=== PATIENT | female | born 1975 | race Caucasian/White ===

== ENCOUNTER 2019-11-26 14:16 | Emergency (ER) | payer MEDICARE, MEDICAID ==
--- NOTE | 2019-11-26 14:41 | ED General ---
General Chief Complaint: General Problems/Pain Stated Complaint: PANIC ATTACK Nursing Triage Note: Was sent from urgent care for panic attack and low INR. Was seeking care due to her INR being 1.1 at home. Has hx of aortic valve replacement and is supposed to have INR at 2.5 to 3. Nursing Sepsis Screen: No Definite Risk Source of Information: Patient, Old Records, RN/MD, RN Notes Reviewed Exam Limitations: No Limitations History of Present Illness Date Seen by Provider: November 26, 2019 Time Seen by Provider: 14:25 Initial Comments This patient is a 43-year-old female presents to the emerge department for concerns about her INR. Patient states she got panicky and upset because she is supposed thank you primary level between 2.5 and 3.5 due to a prosthetic valve. Patient states he got upset. Patient does have a regimen of Coumadin dosages to take when she has issues like this. But just scared her. Patient does not appear to be acutely sick patient does not appear to be acutely anxious or panicky at this time. Severity: Mild Allergies and Home Medications Allergies Coded Allergies: aspirin (Verified Allergy, Unknown, "stops my heart", 11/26/19) Patient Home Medication List Home Medication List Reviewed: Yes Review of Systems Review of Systems Constitutional: No no symptoms reported; see HPI; No chills, No diaphoresis, No dizziness, No fever, No malaise, No weakness, No weight gain, No weight loss, No other EENTM: No see HPI, No no symptoms reported, No ear discharge, No hearing loss, No ear pain, No blurred vision, No double vision, No eye pain, No tearing, No vision loss, No dental problems, No hoarseness, No mouth pain, No mouth swelling, No epistaxis, No nose congestion, No nose pain, No throat pain, No throat swelling, No other Respiratory: No no symptoms reported, No see HPI, No cough, No dyspnea on exertion, No hemoptysis, No orthopnea, No phlegm, No short of breath, No stridor, No wheezing, No other Cardiovascular: No no symptoms reported, No see HPI, No chest pain, No edema, No Hx of Intervention, No palpitations, No syncope, No vascular heart diseas, No other Gastrointestinal: No RUQ, No LUQ, No RLQ, No LLQ, No no symptoms reported, No see HPI, No abdominal pain, No constipation, No diarrhea, No dysphagia, No hematemesis, No heartburn, No jaundice, No loss of appetite, No melena, No nausea, No vomiting, No other Genitourinary: No no symptoms reported, No see HPI, No decreased output, No discharge, No dysuria, No frequency, No hematuria, No hesitancy, No incontinence, No nocturia, No pain, No other Musculoskeletal: No no symptoms reported, No see HPI, No back pain, No gout, No joint pain, No joint swelling, No muscle pain, No muscle stiffness, No muscle cramps, No muscle twitching, No muscle weakness, No neck pain, No other Skin: No no symptoms reported, No see HPI, No change in color, No change in hair/nails, No dryness, No hx of skin cancer, No lesions, No lumps, No pruritus, No rash, No other Psychiatric/Neurological: Denies No Symptoms Reported; See HPI, Anxiety; Denies Depressed, Denies Emotional Problems, Denies Headache, Denies Numbness, Denies Paresthesia, Denies Pre-Existing Deficit, Denies Seizure, Denies Tingling, Denies Tremors, Denies Weakness, Denies Other Hematologic/Lymphatic: Denies No Symptoms Reported, Denies See HPI, Denies Anemia, Denies Blood Clots, Denies Easy Bleeding, Denies Easy Bruising, Denies Swollen Glands, Denies Other All Other Systems Reviewed Negative Unless Noted: Yes Past Zjqqgww-Qlbbqz-Uctbfh Hx Patient Social History Alcohol Use: Denies Use Recreational Drug Use: No Smoking Status: Former Smoker Type Used: Cigarettes Former Smoker, Quit: Jul 13, 2012 2nd Hand Smoke Exposure: Yes Recent Foreign Travel: No Contact w/Someone Who Travel: No Recent Infectious Disease Expo: No Recent Hopitalizations: No Seasonal Allergies Seasonal Allergies: No Past Medical History Surgeries: Yes (aortic valve replacement; ) Cardiac, Gallbladder Respiratory: No Cardiac: Yes Hypertension Neurological: Yes Stroke Genitourinary: No Gastrointestinal: Yes Irritable Bowel Musculoskeletal: No Endocrine: No HEENT: No Cancer: No Anxiety Integumentary: No Physical Exam Vital Signs Vital Signs - First Documented 11/26/19 14:28 Temp 36.9 Pulse 94 Resp 16 B/P (MAP) 132/98 (109) Pulse Ox 98 Capillary Refill : Less Than 3 Seconds Height, Weight, BMI Height: '" Weight: lbs. oz. kg; BMI Method: General Appearance: No Apparent Distress, WD/WN HEENT: PERRL/EOMI, TMs Normal, Normal ENT Inspection, Pharynx Normal Neck: Full Range of Motion, Normal Inspection, Non Tender, Supple, Carotid Bruit Respiratory: Chest Non Tender, Lungs Clear, Normal Breath Sounds, No Accessory Muscle Use, No Respiratory Distress Cardiovascular: Regular Rate, Rhythm, No Edema, No Gallop, No JVD, No Murmur, Normal Peripheral Pulses Gastrointestinal: Normal Bowel Sounds, No Organomegaly, No Pulsatile Mass, Non Tender, Soft Back: Normal Inspection, No CVA Tenderness, No Vertebral Tenderness Extremity: Normal Capillary Refill, Normal Inspection, Normal Range of Motion, Non Tender, No Calf Tenderness, No Pedal Edema Neurologic/Psychiatric: Alert, Oriented x3, No Motor/Sensory Deficits, Normal Mood/Affect Progress/Results/Core Measures Suspected Sepsis Recent Fever Within 48 Hours: No Infection Criteria Present: None New/Unexplained Altered Menta: No Sepsis Screen: No Definite Risk SIRS Temperature: Pulse: 94 Respiratory Rate: 16 Blood Pressure 132 /98 Mean: 109 Results/Orders Vital Signs/I&O 11/26/19 14:28 Temp 36.9 Pulse 94 Resp 16 B/P (MAP) 132/98 (109) Pulse Ox 98 Capillary Refill : Less Than 3 Seconds Blood Pressure Mean: 109 Progress Note : Time: 14:38 Progress Note I did discuss at length with patient about her normal INR readings. Patient does check this daily. Patient states she tries to keep around 3.0. But does admit that he changes every day. We did review patient's medication regimen with her Coumadin and her orders from her. From a care doctor. We did discuss at length with options. Patient will continue to monitor her diet and her INR. Patient will take Coumadin as instructed per her PCP. Patient will check her INR in the morning prior to her Coumadin dose and then check it again 12 hours later. She will keep this log and follow up with her primary care physician on Thursday. Patient has no complaints. We'll do medical evaluation treatment is needed. Patient's INR checked at home was 1.2. Patient was offered repeat labs in the emergency department the patient declines. Patient states she feels much better after discussing the issue. Patient be discharged per her request Departure Impression Primary Impression: Encounter for medication review and counseling Additional Impressions: Anxiety Encounter for medical screening examination Disposition: HOME, SELF-CARE Condition: Stable Departure-Patient Inst. Decision time for Depature: 14:40 Add. Discharge Instructions: Continue with your INR daily checks. Continue to monitor your diet. Continue with all home medications. Follow-up with her primary care physician on Thursday to discuss options on your Coumadin dosage and diet. Continue with all home medications. All discharge instructions reviewed with patient and/or family. Voiced understanding. AISLINN TAYLOR MD November 26, 2019 14:41
[2019-11-26 14:49] VITALS: BP 132/98
--- OUTSIDE RECORDS SUMMARY | 2019-11-26 15:00 | XMS REPORT ---
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 Active 61752100165168 Problem Gastroesophageal reflux disease without esophagitis K21.9 Active 539859630 ALLERGIES No Information ENCOUNTERS Encounter Location Date Diagnosis [place] [address] [place] [phone] Jan [place] [address] [place] [phone] Oct [place] [address] [place] [phone] Oct [place] [address] [place] [phone] [address] Oct, [facility] [address] [place] [phone] Sep [place] [address] [place] [phone] Sep [place] [address] [place] [phone] Sep [facility] [address] [address] [place] [address] Aug, Lumbosacral pain M54.5 [place] [address] [place] [phone] Aug Essential hypertension I10 ; Aortic valve replaced Z95.2 ; 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 ; Gastroesophageal reflux disease without esophagitis K21.9 ; Non-seasonal allergic rhinitis, unspecified trigger J30.89 ; Lumbosacral pain M54.5 and Tenderness of lumbar region M54.5 [facility] [address] [place] [phone] Jul [facility] [address] [place] [phone] Jul [facility] [address] [place] [phone] Jul Seasonal allergic rhinitis, unspecified trigger J30.2 IMMUNIZATIONS No Known Immunizations SOCIAL HISTORY Never Assessed REASON FOR VISIT PLAN OF CARE VITAL SIGNS MEDICATIONS Unknown Medications RESULTS No Results PROCEDURES No Known procedures INSTRUCTIONS MEDICATIONS ADMINISTERED No Known Medications MEDICAL (GENERAL) HISTORY Type Description Date Medical History hypertension
--- OUTSIDE RECORDS SUMMARY | 2019-11-26 15:00 | XMS REPORT ---
Author Author Lelo RESTREPO Organization [facility] Address [address] [address] Care Team Providers Care Vice President Of Human Resources Name Role Phone LAURO MEDARDO Unavailable PROBLEMS Type Condition ICD9-CM Code VMI87-UI Code Onset Dates Condition S tatus SNOMED Code Problem Aortic valve replaced Z95.2 Active 2410138133846 Problem Essential hypertension I10 Active 95765305 Problem Seasonal allergic rhinitis, unspecified trigger J3 0.2 Active 194916697 Problem Non-seasonal allergic rhinitis, unspecified trigger J30.89 Active 79217095 Problem 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 Active 94160158611784 Problem Gastroesophageal reflux disease without esophagitis K21.9 Active 286252497 ALLERGIES No Information ENCOUNTERS Encounter Location Date Diagnosis [place] [address] [place] [phone] Jan [place] [address] [place] [phone] Oct [place] [address] [place] [phone] Oct [place] [address] [place] [phone] [address] [address] Oct, [place] [address] [place] [phone] Sep [place] [address] [place] [phone] Sep [place] [address] [place] [phone] Sep [facility] [address] [address] [place] [address] Aug, Lumbosacral pain M54.5 [place] [address] [place] [phone] Aug Essential hypertension I10 ; Aortic valve replaced Z95.2 ; 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 ; Gastroesophageal reflux disease without esophagitis K21.9 ; Non-seasonal allergic rhinitis, unspecified trigger J30.89 ; Lumbosacral pain M54.5 and Tenderness of lumbar region M54.5 [facility] [address] [place] [phone] Jul [place] [address] [place] [phone] Jul [facility] [address] [place] [phone] Jul Seasonal allergic rhinitis, unspecified trigger J30.2 IMMUNIZATIONS No Known Immunizations SOCIAL HISTORY Never Assessed REASON FOR VISIT Allergies PLAN OF CARE VITAL SIGNS MEDICATIONS Medication Instructions Dosage Frequency Start Date End Date Duration S tatus Cetirizine HCl 10 MG Orally Once a day 1 tablet 24h Sep, 30 day(s) Active RESULTS No Results PROCEDURES No Known procedures INSTRUCTIONS MEDICATIONS ADMINISTERED No Known Medications MEDICAL (GENERAL) HISTORY Type Description Date Medical History hypertension
--- OUTSIDE RECORDS SUMMARY | 2019-11-26 15:00 | XMS REPORT ---
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 [address] [place] [address] Mar, Left knee pain, unspecified chronicity M25.562 [facility] [address] [place] [address] [address] Mar, Seasonal allergic rhinitis, unspecified trigger J30.2 [facility] [address] [place] [address] [address] Jan, [facility] [address] [place] [address] [address] Oct, [facility] [address] [place] [address] [address] Oct, [facility] [address] [place] [address] [address] Oct, [address] [place] [address] Oct, [facility] [address] [place] [address] [address] Sep, [place] [address] [place] [id number] [place] [phone] Sep, [facility] [address] [place] [address] [address] Sep, [facility] [id number] [place] [address] Aug, Lumbosacral pain M54.5 [place] [address] [place] [id number] [place] [phone] Aug, Essential hypertension I10 ; Aortic valve replaced Z95.2 ; 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 ; Gastroesophageal reflux disease without esophagitis K21.9 ; Non-seasonal allergic rhinitis, unspecified trigger J30.89 ; Lumbosacral pain M54.5 and Tenderness of lumbar region M54.5 [place] [address] [place] [address] [address] Jul, [place] [address] [place] [address] [address] Jul, [place] [address] [place] [id number] [place] [phone] Jul, Seasonal allergic rhinitis, unspecified trigger J30.2 IMMUNIZATIONS No Known Immunizations SOCIAL HISTORY Never Assessed REASON FOR VISIT LMTRC PLAN OF CARE VITAL SIGNS MEDICATIONS Unknown Medications RESULTS No Results PROCEDURES No Known procedures INSTRUCTIONS MEDICATIONS ADMINISTERED No Known Medications MEDICAL (GENERAL) HISTORY Type Description Date Medical History hypertension Medical History depression Surgical History cardiac by pass -- 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
== END 2019-11-26 14:50 | disposition home or self-care (01) ==
LOC: ER FS 14:18
DX: F41.9 Anxiety disorder, unspecified (principal); Z88.6 Allergy status to analgesic agent; Z87.891 Personal history of nicotine dependence; Z77.22 Contact with and (suspected) exposure to environmental tobacco smoke (acute) (chronic); Z86.73 Personal history of transient ischemic attack (TIA), and cerebral infarction without residual deficits; Z95.4 Presence of other heart-valve replacement
CPT/HCPCS: 99281

== ENCOUNTER 2020-08-25 12:31 | Emergency (ER) | payer MEDICARE, MEDICAID ==
[~2020-08-25] VITALS: Ht 165.1 cm; Wt 94.8 kg
--- NOTE | 2020-08-25 13:00 | ED General ---
General Stated Complaint: LT FOOT INJ Source of Information: Patient Exam Limitations: No Limitations History of Present Illness Date Seen by Provider: Aug 25, 2020 Time Seen by Provider: 12:54 Initial Comments 44-year-old female presents with left foot pain from an injury last night. She states she hit her foot on a piece of furniture and twisted it and today she is unable to bear weight. Noticed some swelling, no bruising on the bottom outside of her foot. Denies a history of any foot fracture, but does state that she has had a sprain in the past. Denies any other injury or complaint. Allergies and Home Medications Allergies Coded Allergies: aspirin (Verified Allergy, Unknown, "stops my heart", 11/26/19) Patient Home Medication List Home Medication List Reviewed: Yes Review of Systems Review of Systems Constitutional: No chills, No fever, No malaise, No weakness EENTM: no symptoms reported Musculoskeletal: No back pain, No joint pain, No muscle pain; other (left foot pain) Past Xglbbta-Tnfibp-Bndfqc Hx Past Med/Social Hx: Reviewed Nursing Past Med/Soc Hx Patient Social History Type Used: Cigarettes Former Smoker, Quit: Jul 13, 2012 2nd Hand Smoke Exposure: Yes Recent Hopitalizations: No Seasonal Allergies Seasonal Allergies: No Past Medical History Surgeries: Yes (aortic valve replacement; ) Cardiac, Gallbladder Respiratory: No Cardiac: Yes Hypertension Neurological: Yes Stroke Genitourinary: No Gastrointestinal: Yes Irritable Bowel Musculoskeletal: No Endocrine: No HEENT: No Cancer: No Anxiety Integumentary: No Physical Exam Vital Signs Capillary Refill : Height, Weight, BMI Height: '" Weight: lbs. oz. kg; BMI Method: General Appearance: No Apparent Distress, WD/WN Extremity: Normal Capillary Refill, Normal Inspection, Other (Tenderness mid 5th MT w edema, no ecchymosis. NVI) Neurologic/Psychiatric: Alert, No Motor/Sensory Deficits, Normal Mood/Affect Skin: Normal Color, Warm/Dry; No Ecchymosis Progress/Results/Core Measures Suspected Sepsis SIRS Temperature: Pulse: Respiratory Rate: Blood Pressure / Mean: Results/Orders My Orders Orders - JOIVENLENCHO OVIEDO DO Foot 3 View Left (08/25/20 12:53) Vital Signs/I&O Capillary Refill : Progress Note : Progress Note Patient presents w an KULWINDER-wrap, an Ortho walking boot AND an Ortho s cooter.....some things she had, some borrowed. Explained she had everything she needed until Ortho f/u and advised to remain NWB as much as possible. Diagnostic Imaging Diagonstic Imaging: Xray Comments FINDINGS: Obliquely oriented fracture through the 5th metatarsal shaft. There is slight medial displacement of the main distal fracture fragment. Approximately 1.5 mm of displacement. The articular head is maintained. There is associated soft tissue edema along the lateral aspect of foot. Remaining structures otherwise intact. IMPRESSION: 1. Mildly displaced obliquely oriented fracture of the distal 5th metatarsal shaft. Associated soft tissue swelling. Dictated on workstation # [id number] Dict: 08/25/20 1308 Trans: 08/25/20 1311 [facility] [id number] Interpreted by: ANUM CHEN DO Electronically signed by: Departure Impression Primary Impression: Fracture of foot Qualified Codes: S92.902A - Unspecified fracture of left foot, initial encounter for closed fracture Disposition: HOME, SELF-CARE Condition: Stable Departure-Patient Inst. Decision time for Depature: 13:17 Referrals: MEDARDO RESTREPO APRN (PCP) Primary Care Physician NHI LAROSE MD (Family) Primary Care Physician KAREN BAUGH MD Patient Instructions: Foot Fracture (DC) Add. Discharge Instructions: Call Dr Baugh on Thursday to schedule a follow up appointment next week. Avoid weight bearing and keep foot elevated to help with swelling and pain LENCHO LEMUS DO Aug 25, 2020 13:00
--- NOTE | 2020-08-25 13:11 | Diagnostic Imaging Report ---
INDICATION: FOOT PAIN. TECHNIQUE: 3 views of the left foot CORRELATION STUDY: None FINDINGS: Obliquely oriented fracture through the 5th metatarsal shaft. There is slight medial displacement of the main distal fracture fragment. Approximately 1.5 mm of displacement. The articular head is maintained. There is associated soft tissue edema along the lateral aspect of foot. Remaining structures otherwise intact. IMPRESSION: 1. Mildly displaced obliquely oriented fracture of the distal 5th metatarsal shaft. Associated soft tissue swelling. Dictated by: Dictated on workstation # [id number]
[2020-08-25 13:42] VITALS: BP 127/79
== END 2020-08-25 13:42 | disposition home or self-care (01) ==
LOC: EDUNIT# 12:31 → ER FS 12:34
DX: S92.352A Displaced fracture of fifth metatarsal bone, left foot, initial encounter for closed fracture (principal); Z88.8 Allergy status to other drugs, medicaments and biological substances; Z86.73 Personal history of transient ischemic attack (TIA), and cerebral infarction without residual deficits; Z87.891 Personal history of nicotine dependence; X50.1XXA Overexertion from prolonged static or awkward postures, initial encounter
CPT/HCPCS: 73630

== ENCOUNTER → 2020-09-11 | Outpatient (CLI) | payer MEDICARE, MEDICAID ==
--- NOTE | 2020-09-11 12:30 | Diagnostic Imaging Report ---
INDICATION: Left foot fracture follow-up. AP, oblique, and lateral views of the left foot are obtained and compared to 08/25/2020. FINDINGS: The fracture of the 5th metatarsal is again noted. There appears to be mild increased displacement of fracture fragments compared to the prior study, with about 3 to 4 mm of displacement of the dominant fragments. I do not yet see significant callus formation. Remaining bony structures show no acute finding. IMPRESSION: 5th metatarsal fracture again noted, with mild increased displacement compared to the previous study. Dictated by: Dictated on workstation # [id number]
== END ==
LOC: RAD FS 10:10
PROVIDERS: ATTEND Nurse Practitioner
DX: S92.352D Displaced fracture of fifth metatarsal bone, left foot, subsequent encounter for fracture with routine healing (principal)
CPT/HCPCS: 73630

== ENCOUNTER → 2020-10-02 | Outpatient (CLI) | payer MEDICARE, MEDICAID ==
--- NOTE | 2020-10-02 11:05 | Diagnostic Imaging Report ---
INDICATION: Follow-up fracture. COMPARISON: 09/11/2020 FINDINGS: 3 radiographic views of the left foot were obtained and again demonstrate nonacute oblique oriented fracture of the 5th metatarsal. There is mild stable residual displacement of the fracture fragments. Since the previous exam, there has been interval development of adjacent soft tissue ossification consistent with probable early bridging callus formation. No new acute fracture or dislocation of the left foot is seen. No unexpected radiopaque foreign bodies are identified. IMPRESSION: 1. Partial interval healing in regards to otherwise stable fracture of the 5th metatarsal. Dictated by: Dictated on workstation # [id number]
== END ==
LOC: RAD FS 10:04
PROVIDERS: ATTEND Nurse Practitioner
DX: S92.352D Displaced fracture of fifth metatarsal bone, left foot, subsequent encounter for fracture with routine healing (principal); X58.XXXD Exposure to other specified factors, subsequent encounter
CPT/HCPCS: 73630

== ENCOUNTER 2021-02-08 19:17 | Emergency (ER) | payer MEDICARE, MEDICAID ==
[2021-02-08] MEDS ORDERED: methylPREDNISolone 80 MG/ML (DEPO MEDROL) VIAL IM STA (19:54)
--- NOTE | 2021-02-08 19:56 | ED General ---
General Chief Complaint: Cough/Cold/Flu Symptoms Stated Complaint: SORE THROAT,COUGH,RUNNING NOSE Nursing Triage Note: Pt complaining of nasal congestion and a cough since Thursday. Pt states she has been in contact with someone who tested positive for Covid and is concerned she might have it. Source of Information: Patient History of Present Illness Date Seen by Provider: Feb 08, 2021 Time Seen by Provider: 19:19 Initial Comments 45-year-old female presenting with nasal congestion, cough and concern for Covid. She states that she has had her cough and congestion for over 10 days. She has been exposed to 2 people this week that have been diagnosed with Covid. She has felt like her congestion and cough have gotten worse in the last 2 days. She also has a lot of anxiety and has been more worried that she has contracted Covid since she was around Covid in the last few days. She denies any fever, chills, shortness of breath, nausea, vomiting, diarrhea, pain with urination. She has had a cough but feels like it is more drainage from her nose causing her to cough. She does not feel like she has a deep cough. Allergies and Home Medications Allergies Coded Allergies: aspirin (Verified Allergy, Unknown, "stops my heart", 11/26/19) Patient Home Medication List Home Medication List Reviewed: Yes Review of Systems Review of Systems Constitutional: No chills, No fever; malaise EENTM: see HPI Respiratory: see HPI Cardiovascular: no symptoms reported Gastrointestinal: no symptoms reported Genitourinary: no symptoms reported Musculoskeletal: no symptoms reported Skin: No rash Psychiatric/Neurological: Anxiety, Headache (Frontal sinus) Past Mkrzpte-Ukjvxg-Acfwkg Hx Patient Social History Tobacco Use?: No Use of E-Cig and/or Vaping dev: No Substance use?: No Alcohol Use?: No Pt feels they are or have been: No Immunizations Up To Date Tetanus Booster (TDap): Unknown Seasonal Allergies Seasonal Allergies: No Past Medical History Surgeries: Yes (aortic valve replacement; cleft palate) Cardiac, Gallbladder Respiratory: No Cardiac: Yes Hypertension Neurological: Yes Stroke Genitourinary: No Gastrointestinal: Yes Irritable Bowel Musculoskeletal: No Endocrine: No HEENT: No (Cleft palate repair yrs ago) Cancer: No Anxiety Integumentary: No Physical Exam Vital Signs Vital Signs - First Documented 02/08/21 19:20 Temp 37.7 Pulse 89 Resp 18 B/P (MAP) 165/109 (127) Pulse Ox 98 O2 Delivery Room Air Capillary Refill : Less Than 3 Seconds Height, Weight, BMI Height: '" Weight: lbs. oz. kg; 34.00 BMI Method: General Appearance: Anxious HEENT: PERRL/EOMI, Pharynx Normal, Other (TMs showed mild dullness bilaterally with some clear fluid. There is no erythema. No tenderness over sinuses with palpation.) Neck: Full Range of Motion, Normal Inspection, Non Tender, Supple Respiratory: Chest Non Tender, Lungs Clear, Normal Breath Sounds, No Accessory Muscle Use, No Respiratory Distress Cardiovascular: Regular Rate, Rhythm, Normal Peripheral Pulses, Other (Click present) Gastrointestinal: No Pulsatile Mass, Non Tender, Soft Extremity: Normal Capillary Refill, Normal Inspection, No Pedal Edema Neurologic/Psychiatric: Alert, Oriented x3 Skin: Normal Color, Warm/Dry Progress/Results/Core Measures Suspected Sepsis SIRS Temperature: Pulse: 89 Respiratory Rate: 18 Blood Pressure 165 /109 Mean: 127 Results/Orders Lab Results Laboratory Tests Test 02/08/21 20:11 Range/Units Micro Results Microbiology 02/08/21 Influenza Types A,B Antigen (DEBBY) - Final, Complete My Orders Orders - LIYA HALLMAN MD Influenza A And B Antigens (02/08/21 19:54) Covid 19 Inhouse Test (02/08/21 19:54) Dexamethasone Injection (Decadron Inje (02/08/21 19:54) Methylprednisolone Acetate Inj (Depo-Med (02/08/21 19:54) Vital Signs/I&O 02/08/21 02/08/21 19:20 21:03 Temp 37.7 Pulse 89 83 Resp 18 18 B/P (MAP) 165/109 (127) 150/97 (127) Pulse Ox 98 98 O2 Delivery Room Air Capillary Refill : Less Than 3 Seconds Blood Pressure Mean: 127 Progress Note #1: Progress Note Advised patient that on exam this seems to be more allergies and/or viral. Since she is currently in the ED will send rapid flu and swab for Covid. Counseled that the Covid swab takes a day or 2 to come back. In terms of her allergies and congestion use dexamethasone and Depo-Medrol. Progress Note #2: Progress Note Influenza negative. Covid pending. Encourage fluids and rest. Counseled on quarantine and return precautions. Departure Impression Primary Impression: Nasal congestion Additional Impressions: Post-nasal drainage Cough Exposure to confirmed case of COVID-19 Disposition: 01 HOME, SELF-CARE Condition: Stable Departure-Patient Inst. Decision time for Depature: 20:43 Referrals: MEDARDO RESTREPO APRN (PCP) Primary Care Physician [facility] LAROSE MD (Family) Primary Care Physician Patient Instructions: Seasonal Allergies ED, Cough, Adult ED, COVID-19 ED Add. Discharge Instructions: Stay well hydrated and drink plenty of fluids. Use Plain Mucinex to help with congestion and drainage as well as loosen your co ugh Check back with clinic for continued problems/concerns. Continue with self quarantine since you have been around a person with COVID. If you have a positive result for your COVID test you will get a call to let you know. All discharge instructions reviewed with patient and/or family. Voiced understanding. LIYA HALLMAN MD Feb 08, 2021 19:56
[2021-02-08 21:03] VITALS: BP 150/97
== END 2021-02-08 21:03 | disposition home or self-care (01) ==
LOC: EDUNIT# 19:17 → ER FS 19:19
DX: U07.1 COVID-19 (principal); I10 Essential (primary) hypertension
CPT/HCPCS: 87636; 87804

== ENCOUNTER 2022-08-17 13:38 | Emergency (ER) | payer MEDICARE, MEDICAID ==
--- NOTE | 2022-08-17 13:58 | ED Upper Extremity ---
General Chief Complaint: Upper Extremity Stated Complaint: RT WRIST INJ Source: patient Exam Limitations: no limitations History of Present Illness Date Seen by Provider: Aug 17, 2022 Time Seen by Provider: 13:40 Initial Comments 46yoF that is qsmbv-ibjp-ynszluer with PMH of mechanical heart valve on warfarin coming in after she was walking her dog, fell backwards on her outstretched right hand causing severe pain and deformity. This occurred roughly 45 minutes prior to arrival. Went to the urgent care, and they told her there is nothing they could do and they referred her to the emergency department. Pain worse with movement, better with rest and ice. Has not taken anything for it as of yet. Denies any numbness or new weakness. Otherwise denying any other acute complaints. Did not hit her head or pass out. Allergies and Home Medications Allergies Coded Allergies: aspirin (Verified Allergy, Unknown, "stops my heart", 11/26/19) Patient Home Medication List Home Medication List Reviewed: Yes Review of Systems Constitutional: No fever EENTM: no symptoms reported Respiratory: no symptoms reported Cardiovascular: no symptoms reported Musculoskeletal: see HPI Skin: no symptoms reported Psychiatric/Neurological: No Symptoms Reported All Other Systems Reviewed Negative Unless Noted: Yes Past Nyhpdpl-Nkhmff-Rztxpk Hx Patient Social History Tobacco Use?: No Use of E-Cig and/or Vaping dev: No Substance use?: No Alcohol Use?: No Pt feels they are or have been: No Immunizations Up To Date Tetanus Booster (TDap): Unknown First/Initial COVID19 Vaccinat: Denies Seasonal Allergies Seasonal Allergies: No Past Medical History Surgery/Hospitalization HX: CABG; [place]; Tonsillectomy; Oophorectomy Surgeries: Yes (aortic valve replacement; cleft palate) Cardiac, Gallbladder Respiratory: No Cardiac: Yes Hypertension Neurological: Yes Stroke Genitourinary: No Gastrointestinal: Yes Irritable Bowel Musculoskeletal: No Endocrine: No HEENT: No (Cleft palate repair yrs ago) Cancer: No Anxiety Integumentary: No Physical Exam Vital Signs Vital Signs - First Documented 08/17/22 13:44 Temp 36.4 Pulse 89 Resp 16 B/P (MAP) 157/92 (113) Pulse Ox 99 O2 Delivery Room Air Capillary Refill : Height, Weight, BMI Height: '" Weight: lbs. oz. kg; 34.00 BMI Method: General Appearance: WD/WN, no apparent distress HEENT: PERRL/EOMI, normal ENT inspection, pharynx normal Neck: non-tender, full range of motion, supple, normal inspection Cardiovascular: regular rate, rhythm, no edema Respiratory: chest non-tender, lungs clear, normal breath sounds, no respiratory distress, no accessory muscle use Gastrointestinal: normal bowel sounds, non tender, soft; No distended, No guarding Back: normal inspection, no CVA tenderness, no vertebral tenderness Shoulder: normal inspection, non-tender, no evidence of injury, normal ROM Elbow/Forearm: normal inspection, non-tender, no evidence of injury, normal ROM Wrist: Yes swelling (Right wrist with swelling on the distal radius with maximal tenderness in that area, neurovascularly intact distal to the injury, normal testing motor exam for radial, median, and ulnar nerves, no scaphoid tenderness) Hand: normal inspection, non-tender, no evidence of injury, normal ROM, Right Neurologic/Tendon: normal sensation, normal motor functions, normal tendon functions Neurologic/Psychiatric: no motor/sensory deficits, alert, normal mood/affect Skin: normal color, warm/dry Lymphatic: no adenopathy Procedures/Interventions Splinting and Joint Reduction : Splint Application: Short Arm (Ortho-Glass used with padding prior and Blaze bandage over it, neurovascularly intact before and after, pain controlled well after placing the splint) Progress/Results/Core Measures Results/Orders My Orders Orders - FAUSTO REECE MD Wrist 3 View Right (08/17/22 13:53) Acetaminophen Tablet (Tylenol Tablet) (08/17/22 14:00) Medications Given in ED Current Medications Medications Dose Ordered Sig/Dada Route Start Time Stop Time Status Last Admin Dose Admin Acetaminophen 1,000 mg ONCE ONCE PO 08/17/22 14:00 08/17/22 14:01 DC 08/17/22 14:01 1,000 MG Vital Signs/I&O 08/17/22 13:44 Temp 36.4 Pulse 89 Resp 16 B/P (MAP) 157/92 (113) Pulse Ox 99 O2 Delivery Room Air Progress Progress Note : Progress Note 46-year-old female with above history coming in after a ground-level fall landing on her outstretched hand on the right. ABCs were intact vital stable on presentation. Neurovascularly intact in the right upper extremity. Right wrist x-ray ordered and interpreted by me showing a distal radius fracture that is mildly displaced and angulated mildly. She also has an ulnar styloid fracture. She was placed in a sugar-tong splint by me. I will have her follow-up with orthopedics as an outpatient. Given Tylenol for pain control because she states she does not like opioids. I believe she is otherwise stable for discharge with outpatient follow-up. She was sent home with strict return precautions. Diagnostic Imaging Diagonstic Imaging: Xray (right wrist) Comments [facility] [place], [place] NAME: MACHO CARLTON [facility] REC#: [id number] PT STATUS: REG ER : 1975 PHYSICIAN: FAUSTO REECE MD ADMIT DATE: 08/17/22/ER FS Draft Date of Exam:08/17/22 WRIST 3 VIEW RIGHT INDICATION: Pain after fall. FINDINGS: There is a transverse fracture through the distal radius. The distal fracture fragment is angulated slightly dorsally. There is also an ulnar styloid fracture. There is no other fracture or dislocation. IMPRESSION: Fractures of the distal right radius and ulna as described. Dictated on workstation # [id number] Dict: 08/17/22 1406 Trans: 08/17/22 1414 [id number] Interpreted by: ROXANNE CAVAZOS MD Electronically signed by: Departure Impression Primary Impression: Distal radius fracture, right Qualified Codes: S52.531A - Colles' fracture of right radius, initial encounter for closed fracture Additional Impression: Fracture of ulnar styloid Qualified Codes: S52.614A - Nondisplaced fracture of right ulna styloid process, initial encounter for closed fracture Disposition: HOME, SELF-CARE Condition: Stable Departure-Patient Inst. Decision time for Depature: 14:22 Referrals: MEDARDO RESTREPO APRN (PCP) Primary Care Physician [facility] (Family) Primary Care Physician REYNOLD SOLER Patient Instructions: Radius Fracture (DC) Add. Discharge Instructions: You do have a fracture in your radius and a smaller one in your ulna both in your wrist. Follow-up with Jaydon Soler here in town, and he can refer you if you need surgery. Take Tylenol as needed for pain like he stated. He can also ice the area. Do not get the splint wet. You will need a cast eventually. Work/School Note: Work Release Form Date Seen in the Emergency Department: Aug 17, 2022 Return to Work: Aug 18, 2022 Restrictions: No Restrictions FAUSTO REECE MD Aug 17, 2022 13:58
[2022-08-17] MEDS ORDERED: ACETAMINOPHEN 500 MG TAB (TYLENOL) PO ONE (14:00)
--- NOTE | 2022-08-17 14:15 | Diagnostic Imaging Report ---
INDICATION: Pain after fall. FINDINGS: There is a transverse fracture through the distal radius. The distal fracture fragment is angulated slightly dorsally. There is also an ulnar styloid fracture. There is no other fracture or dislocation. IMPRESSION: Fractures of the distal right radius and ulna as described. Dictated by: Dictated on workstation # [id number]
[2022-08-17 14:24] VITALS: BP 157/92
== END 2022-08-17 14:24 | disposition home or self-care (01) ==
LOC: EDUNIT# 13:38 → ER FS 13:39
DX: S52.501A Unspecified fracture of the lower end of right radius, initial encounter for closed fracture (principal); S52.611A Displaced fracture of right ulna styloid process, initial encounter for closed fracture; Z79.01 Long term (current) use of anticoagulants; Z28.310 Unvaccinated for COVID-19; W18.30XA Fall on same level, unspecified, initial encounter; Y93.K1 Activity, walking an animal
CPT/HCPCS: 29125; 73110

== ENCOUNTER → 2022-08-19 | Outpatient (CLI) | payer MEDICARE, MEDICAID ==
--- NOTE | 2022-08-19 17:12 | Diagnostic Imaging Report ---
EXAMINATION: Right wrist radiographs, 2 views. COMPARISON: None. HISTORY: 46-year-old female, right wrist pain. FINDINGS: There is a comminuted displaced distal radial metaphyseal fracture without identified intra-articular fracture extension. There is no periosteal reaction or bony callus bridging. There is widening of the scapholunate interval without proximal migration of the capitate. There is chronic-appearing deformity of the distal ulna. IMPRESSION: 1. Comminuted displaced fracture of the distal radial metaphysis without identified intra-articular fracture extension. 2. Widening the scapholunate interval without proximal migration of the capitate. This is of unclear exact age. It has associations with scapholunate ligament injury. Dictated by: Dictated on workstation # [id number]
== END ==
LOC: RAD FS 13:15
PROVIDERS: ATTEND Nurse Practitioner
DX: S52.531A Colles' fracture of right radius, initial encounter for closed fracture (principal); X58.XXXA Exposure to other specified factors, initial encounter
CPT/HCPCS: 73100

== ENCOUNTER → 2022-08-29 | Outpatient (CLI) | payer MEDICARE, MEDICAID ==
--- NOTE | 2022-08-29 15:11 | Diagnostic Imaging Report ---
EXAMINATION: Right wrist radiographs, 2 views. COMPARISON: August 19, 2022. HISTORY: 46-year-old female, right wrist fracture. Follow-up exam. FINDINGS: There is a mildly displaced distal radial metaphyseal fracture without significant interval change in bone alignment. There is a persistent well-visualized fracture line. There is interval placement of overlying cast material. There is widening of the scapholunate interval. There is no proximal migration of the capitate. There is a chronic-appearing deformity of the distal ulna. IMPRESSION: 1. Interval placement of overlying cast material with redemonstrated and unchanged appearance of the distal radial metaphyseal fracture. 2. Redemonstrated widening of the scapholunate interval which can be seen with scapholunate ligament injury. There is no proximal migration of the capitate. Dictated by: Dictated on workstation # [id number]
== END ==
LOC: RAD FS 10:18
PROVIDERS: ATTEND Nurse Practitioner
DX: M24.231 Disorder of ligament, right wrist (principal); S52.531D Colles' fracture of right radius, subsequent encounter for closed fracture with routine healing; X58.XXXD Exposure to other specified factors, subsequent encounter
CPT/HCPCS: 73100

== ENCOUNTER → 2022-09-12 | Outpatient (CLI) | payer MEDICARE, MEDICAID ==
--- NOTE | 2022-09-12 12:33 | Diagnostic Imaging Report ---
EXAMINATION: Right wrist radiographs, 2 views. COMPARISON: August 29, 2022. HISTORY: 46-year-old female, follow-up right distal radius fracture. FINDINGS: There has been interval removal of the previously noted overlying cast material. There is a redemonstrated distal radial metaphyseal fracture which is very minimally displaced. There is a well-visualized fracture line. There are large areas of the fracture which are incompletely bridged. There is positive ulnar variance. There is a deformity of the ulnar styloid which may reflect prior fracture. There is question of widening of the scapholunate interval. There is a normal variant type II lunate facet. There is no proximal migration of the capitate. IMPRESSION: 1. Minimally displaced fracture of the distal radius with large portions of the fracture being incompletely bridged. 2. Interval removal of the previously noted overlying cast material. 3. Widening of the scapholunate interval without proximal migration of the capitate. Dictated by: Dictated on workstation # [id number]
== END ==
LOC: RAD FS 10:34
PROVIDERS: ATTEND Nurse Practitioner
DX: S52.531D Colles' fracture of right radius, subsequent encounter for closed fracture with routine healing (principal)
CPT/HCPCS: 73100

== ENCOUNTER → 2022-10-03 | Outpatient (CLI) | payer MEDICARE, MEDICAID ==
--- NOTE | 2022-10-03 14:16 | Diagnostic Imaging Report ---
HISTORY: Follow-up right wrist fracture. TECHNIQUE: 3 views of the right wrist. COMPARISON: 09/12/2022 FINDINGS: There is a healing transverse fracture of the distal right radius metaphysis with mild dorsal angulation. Alignment appears stable since the prior study. There is mild soft tissue swelling about the right wrist. There is about 4 mm of positive ulnar variance. There is mild widening at the scapholunate interval measuring about 4 mm. IMPRESSION: 1. Healing, mildly angulated fracture of the distal right radius in unchanged alignment. 2. Widening of the scapholunate interval, consistent with ligament tear. 3. Mild positive ulnar variance. Dictated by: Dictated on workstation # [id number]
== END ==
LOC: RAD FS 10:33
PROVIDERS: ATTEND Nurse Practitioner
DX: S52.531D Colles' fracture of right radius, subsequent encounter for closed fracture with routine healing (principal); X58.XXXD Exposure to other specified factors, subsequent encounter
CPT/HCPCS: 73110

== ENCOUNTER → 2022-10-23 | Outpatient (CLI) | payer MEDICARE, MEDICAID ==
--- NOTE | 2022-10-23 11:07 | Diagnostic Imaging Report ---
INDICATION: Fall with fracture of the right wrist. COMPARISON: 10/03/2022. TECHNIQUE: Three views of the wrist were performed. FINDINGS: A buckle deformity of the distal radius is once again noted with a predominantly transverse component to the fracture site. Alignment is stable. There is no significant interval callus formation. Remaining wrist is stable. IMPRESSION: Stable appearing distal radius fracture. Dictated by: Dictated on workstation # [id number]
== END ==
LOC: RAD FS 10:29
PROVIDERS: ATTEND Nurse Practitioner
DX: S52.531D Colles' fracture of right radius, subsequent encounter for closed fracture with routine healing (principal); X58.XXXD Exposure to other specified factors, subsequent encounter
CPT/HCPCS: 73110